=== PATIENT | female | born 1970 | race Hispanic/Latino ===

== ENCOUNTER 2021-01-05 11:50 | Inpatient (IN) | payer BC ==
[2021-01-05] MEDS ORDERED: hydrALAZINE 20 MG/ML VIAL SLOW IVP PRN (13:47)
[2021-01-05] MEDS ORDERED: Ondansetron PF 4 MG/2 ML Vial IVP PRN (13:47)
[2021-01-05] MEDS ORDERED: Morphine 4 MG/ML VIAL SLOW IVP PRN (13:47)
[2021-01-05] MEDS ORDERED: Ondansetron ODT 4 MG TAB PO PRN (13:47)
[2021-01-05] MEDS ORDERED: Lorazepam 2 MG/ML VIAL SLOW IVP PRN (13:47)
[2021-01-05] MEDS: Acetaminophen 500 MG TAB PO PRN (14:20)
[2021-01-05] MEDS: Ketorolac Tromethamine 30 MG/ML VIAL IVP SCH ×2 (14:25→20:04)
[2021-01-05 16:55] VITALS: BMI 36.1
[2021-01-05] MEDS ORDERED: Acetaminophen 500 MG TAB PO PRN (17:56)
[2021-01-05] MEDS ORDERED: Piperacillin/Tazobactam 3.375 GM in Sodium Chloride 0.9% 100 ML IVPB SCH (18:00)
[2021-01-05] MEDS ORDERED: Piperacillin/Tazobactam 4.5 GM in Sodium Chloride 0.9% 100 ML IVPB SCH (18:00)
[2021-01-05] MEDS: Sodium Chloride 0.45% 1,000 ML IV SCH ×2 (18:07→21:43)
[2021-01-05] MEDS: Morphine 2 MG/ML VIAL SLOW IVP PRN (19:32)
[2021-01-05] MEDS: Famotidine/PF 20 mg/2ml Vial SLOW IVP SCH (20:05)
[2021-01-05] MEDS: Enoxaparin Sodium 40 MG/0.4 ML SYRINGE SC SCH (20:10)
[2021-01-05] MEDS: Piperacillin/Tazobactam 3.375 GM in Sodium Chloride 0.9% 100 ML IVPB SCH (21:44)
[2021-01-06] MEDS: Ketorolac Tromethamine 30 MG/ML VIAL IVP SCH ×4 (01:37→22:02)
[2021-01-06] MEDS: Piperacillin/Tazobactam 3.375 GM in Sodium Chloride 0.9% 100 ML IVPB SCH ×3 (05:12→22:03)
[2021-01-06] MEDS: Sodium Chloride 0.45% 1,000 ML IV SCH ×4 (05:12→22:01)
[2021-01-06 05:37] LABS: #Eosinphils 0.1 thou/uL (0.0-0.7); #Lymphocytes 2.1 thou/uL (1.20-3.40); #Monocytes 0.6 thou/uL (0.11-0.59); #Neutrophils 9.8 thou/uL (1.40-6.50); %Basophils 0.3 % (0.0-1.0); %Eosinophils 0.5 % (0.0-10.0); %Lymphocytes 16.7 % (21.0-51.0); %Monocytes 4.6 % (0.0-10.0); Hemoglobin 13.1 g/dL (12.0-16.0); Mean Corpuscular HGB CONC 32.8 g/dL (32.0-36.0); Mean Corpuscular Hemoglobin 30.8 pg (27.0-31.0); Mean Corpuscular Volume 93.8 fL (78.0-98.0); Mean Platelet Volume 8.1 fL (7.4-10.4); Platelet Count 178 thou/uL (130-400); RBC Distribution Width 11.1 % (11.5-14.5); Red Blood Cell (RBC) Count 4.25 mill/uL (4.20-5.40); White Blood Cell (WBC) Count 12.5 thou/uL (4.8-10.8)
[2021-01-06 05:57] LABS: ALT (SGPT) 16 U/L (8-55); AST (SGOT) 12 U/L (5-34); Albumin 3.2 g/dL (3.5-5.0); Alkaline Phosphatase 81 U/L (40-110); Anion Gap 10 mmol/L (10-20); BUN (Urea Nitrogen) 10 mg/dL (9.8-20.1); Bilirubin, Total 1.4 mg/dL (0.2-1.2); Calc. Creatinine Clearance 109 mL/min (70-130); Calcium 8.2 mg/dL (7.8-10.44); Carbon Dioxide 25 mmol/L (22-29); Chloride 104 mmol/L (98-107); Globulin 2.9 g/dL (2.4-3.5); Glucose 156 mg/dL (70-105); Potassium 4.1 mmol/L (3.5-5.1); Protein, Total 6.1 g/dL (6.0-8.3); Sodium 135 mmol/L (136-145)
[2021-01-06] MEDS: Losartan 25 MG TAB PO SCH (08:04)
[2021-01-06] MEDS: Famotidine/PF 20 mg/2ml Vial SLOW IVP SCH ×2 (08:05→22:02)
[2021-01-06] MEDS: Acetaminophen 500 MG TAB PO PRN (15:49)
[2021-01-06] MEDS: Enoxaparin Sodium 40 MG/0.4 ML SYRINGE SC SCH (22:02)
[2021-01-07] MEDS: Ketorolac Tromethamine 30 MG/ML VIAL IVP SCH ×4 (04:04→21:33)
[2021-01-07] MEDS: Piperacillin/Tazobactam 3.375 GM in Sodium Chloride 0.9% 100 ML IVPB SCH ×3 (05:01→21:34)
[2021-01-07] MEDS: Losartan 25 MG TAB PO SCH (08:02)
[2021-01-07] MEDS: Famotidine/PF 20 mg/2ml Vial SLOW IVP SCH ×2 (08:03→21:33)
[2021-01-07] MEDS: Morphine 2 MG/ML VIAL SLOW IVP PRN (08:04)
[2021-01-07] MEDS: Sodium Chloride 0.45% 1,000 ML IV SCH ×3 (13:25→21:28)
[2021-01-07] MEDS: Acetaminophen 500 MG TAB PO PRN (16:21)
[2021-01-07] MEDS: Zolpidem Tartrate 5 MG TAB PO PRN (21:33)
[2021-01-07] MEDS: Enoxaparin Sodium 40 MG/0.4 ML SYRINGE SC SCH (21:36)
[2021-01-08] MEDS: Ketorolac Tromethamine 30 MG/ML VIAL IVP SCH ×4 (01:54→20:18)
[2021-01-08] MEDS: Sodium Chloride 0.45% 1,000 ML IV SCH ×2 (01:56→11:44)
[2021-01-08] MEDS: Piperacillin/Tazobactam 3.375 GM in Sodium Chloride 0.9% 100 ML IVPB SCH ×3 (05:29→21:43)
[2021-01-08 05:32] LABS: #Eosinphils 0.1 thou/uL (0.0-0.7); #Lymphocytes 1.9 thou/uL (1.20-3.40); #Monocytes 0.5 thou/uL (0.11-0.59); #Neutrophils 3.1 thou/uL (1.40-6.50); %Basophils 0.5 % (0.0-1.0); %Lymphocytes 33.9 % (21.0-51.0); %Monocytes 8.2 % (0.0-10.0); %Neutrophils 55.4 % (42.0-75.0); Hemoglobin 13.2 g/dL (12.0-16.0); Mean Corpuscular HGB CONC 35.6 g/dL (32.0-36.0); Mean Corpuscular Hemoglobin 32.2 pg (27.0-31.0); Mean Corpuscular Volume 90.6 fL (78.0-98.0); Mean Platelet Volume 7.8 fL (7.4-10.4); Platelet Count 217 thou/uL (130-400); RBC Distribution Width 10.8 % (11.5-14.5); White Blood Cell (WBC) Count 5.5 thou/uL (4.8-10.8)
[2021-01-08 06:00] LABS: Anion Gap 12 mmol/L (10-20); BUN (Urea Nitrogen) 12 mg/dL (9.8-20.1); Calc. Creatinine Clearance 131 mL/min (70-130); Calcium 8.5 mg/dL (7.8-10.44); Carbon Dioxide 21 mmol/L (22-29); Chloride 107 mmol/L (98-107); Glucose 65 mg/dL (70-105); Potassium 3.7 mmol/L (3.5-5.1); Sodium 136 mmol/L (136-145)
[2021-01-08] MEDS: Losartan 25 MG TAB PO SCH (08:52)
[2021-01-08] MEDS: Famotidine/PF 20 mg/2ml Vial SLOW IVP SCH ×2 (08:52→20:18)
[2021-01-08] MEDS: Acetaminophen 500 MG TAB PO PRN (14:23)
[2021-01-08] MEDS ORDERED: Sodium Chloride 0.45% 1,000 ML IV SCH (15:59)
[2021-01-08] MEDS: Enoxaparin Sodium 40 MG/0.4 ML SYRINGE SC SCH (20:17)
[2021-01-08] MEDS: Zolpidem Tartrate 5 MG TAB PO PRN (21:43)
[2021-01-09] MEDS: Ketorolac Tromethamine 30 MG/ML VIAL IVP SCH ×2 (02:10→08:41)
[2021-01-09] MEDS: Piperacillin/Tazobactam 3.375 GM in Sodium Chloride 0.9% 100 ML IVPB SCH (05:19)
[2021-01-09] MEDS: Sodium Chloride 0.45% 1,000 ML IV SCH (08:41)
[2021-01-09] MEDS: Losartan 25 MG TAB PO SCH (08:41)
[2021-01-09] MEDS: Famotidine/PF 20 mg/2ml Vial SLOW IVP SCH (08:42)
[2021-01-09 11:52] VITALS: BP 133/84; TEMP 98.2
[2021-01-09] MEDS ORDERED: Amoxicillin/Potassium Clav 500 MG TAB PO SCH (21:00)
== END 2021-01-09 13:10 | disposition home or self-care (01) | DRG 872 ==
LOC: SURG A 13:35
PROVIDERS: ADMIT Specialist; ATTEND Specialist
DX: A41.9 Sepsis, unspecified organism (principal); K57.80 Diverticulitis of intestine, part unspecified, with perforation and abscess without bleeding; Z90.710 Acquired absence of both cervix and uterus; Z79.899 Other long term (current) drug therapy
CPT/HCPCS: 36415; 80048; 80053; 82565; 85025; J1650; J1885; J2270; J2405; J2543; J3490; S0028